=== PATIENT | female | born 1980 | race African-American/Black ===

== ENCOUNTER 2021-07-28 12:08 | Observation (INO) | payer OTHER, SELFPAY ==
[2021-07-28] MEDS ORDERED: Dextrose 50% Abboject 50 ML SYRINGE SLOW IVP PRN (13:11)
[2021-07-28] MEDS ORDERED: Dextrose 5% in Water 1,000 ML IV PRN (13:11)
[2021-07-28] MEDS ORDERED: Morphine 4 MG/ML VIAL SLOW IVP PRN (13:11)
[2021-07-28] MEDS ORDERED: traMADol HCl 50 MG TAB PO PRN ×2 (13:13)
[2021-07-28] MEDS: Acetaminophen 500 MG TAB PO SCH ×2 (15:51→20:20)
[2021-07-28 17:19] LABS: Troponin I 0.343 ng/mL (< 0.028)
[2021-07-28 17:25] LABS: Magnesium 1.8 mg/dL (1.6-2.6)
[2021-07-28] MEDS ORDERED: Magnesium 2 GM/50 ML 2 GM in Premix Bag 1 BAG IVPB SCH (17:45)
[2021-07-28] MEDS: Famotidine 20 MG TAB PO SCH (20:19)
[2021-07-28] MEDS: Senokot S 8.6-50 MG TAB PO SCH (20:20)
[2021-07-28 20:53] LABS: Troponin I 0.199 ng/mL (< 0.028)
[2021-07-29 00:02] LABS: Troponin I 0.126 ng/mL (< 0.028)
[2021-07-29] MEDS: Acetaminophen 500 MG TAB PO SCH ×3 (02:59→14:29)
[2021-07-29 05:24] LABS: #Eosinphils 0.1 thou/uL (0.0-0.7); #Lymphocytes 1.5 thou/uL (1.20-3.40); #Monocytes 0.4 thou/uL (0.11-0.59); #Neutrophils 2.6 thou/uL (1.40-6.50); %Basophils 0.8 % (0.0-1.0); %Eosinophils 1.4 % (0.0-10.0); %Lymphocytes 33.2 % (21.0-51.0); %Neutrophils 56.6 % (42.0-75.0); Hemoglobin 10.6 g/dL (12.0-16.0); Mean Corpuscular HGB CONC 30.4 g/dL (32.0-36.0); Mean Corpuscular Hemoglobin 25.4 pg (27.0-31.0); Mean Corpuscular Volume 83.4 fL (78.0-98.0); Mean Platelet Volume 9.8 fL (7.4-10.4); Platelet Count 225 thou/uL (130-400); RBC Distribution Width 13.2 % (11.5-14.5); White Blood Cell (WBC) Count 4.5 thou/uL (4.8-10.8)
[2021-07-29 05:25] LABS: Troponin I 0.071 ng/mL (< 0.028)
[2021-07-29 05:27] LABS: Anion Gap 11 mmol/L (10-20); BUN (Urea Nitrogen) 7 mg/dL (7.0-18.7); Calc. Creatinine Clearance 87 mL/min (70-130); Calcium 8.4 mg/dL (7.8-10.44); Carbon Dioxide 24 mmol/L (22-29); Chloride 106 mmol/L (98-107); Glucose 100 mg/dL (70-105); Magnesium 2.2 mg/dL (1.6-2.6); Phosphorus 3.4 mg/dL (2.3-4.7); Potassium 3.6 mmol/L (3.5-5.1); Sodium 137 mmol/L (136-145)
[2021-07-29] MEDS: Famotidine 20 MG TAB PO SCH (08:21)
[2021-07-29] MEDS: Senokot S 8.6-50 MG TAB PO SCH (08:22)
[2021-07-29] MEDS ORDERED: Polyethylene Glycol 3350 17 GM Packet PO SCH (09:00)
[2021-07-29] MEDS ORDERED: FLU VACC QS2021-22(6MOS UP)/PF 60 MCG/0.5 ML SYRINGE IM ONE (09:00)
[2021-07-29 12:12] VITALS: BP 104/51; TEMP 97.4
[2021-07-29] MEDS ORDERED: Potassium Chloride 20 MEQ TAB PO SCH (13:15)
== END 2021-07-29 15:45 | disposition home or self-care (01) ==
LOC: ERS 12:08 → 2SW 12:58
PROVIDERS: ADMIT Surgery; ATTEND Surgery
DX: S26.91XA Contusion of heart, unspecified with or without hemopericardium, initial encounter (principal); S30.811A Abrasion of abdominal wall, initial encounter; R77.8 Other specified abnormalities of plasma proteins; I37.1 Nonrheumatic pulmonary valve insufficiency; I47.2 Ventricular tachycardia; V47.5XXA Car driver injured in collision with fixed or stationary object in traffic accident, initial encounter; Y92.488 Other paved roadways as the place of occurrence of the external cause
CPT/HCPCS: 36415; 80048; 83735; 84100; 84484; 85025; 93005; 93306; G0378; J3475